=== PATIENT | female | born 1995 | race Two or more races ===

== ENCOUNTER 2017-11-30 22:50 | Emergency (ER) | payer OTHER ==
[~2017-11-30] VITALS: Ht 172.7 cm; Wt 61.0 kg
[2017-12-01 03:47] VITALS: BP 113/80
== END 2017-12-01 03:50 | disposition home or self-care (01) ==
LOC: ER 22:50
DX: B37.9 Candidiasis, unspecified (principal); F17.200 Nicotine dependence, unspecified, uncomplicated; F12.10 Cannabis abuse, uncomplicated
CPT/HCPCS: 81025; 99283; Z7610